=== PATIENT | female | born 1955 | race American Indian/Alaskan Native ===

== ENCOUNTER 2017-11-08 13:03 | Emergency (ER) | payer MEDICARE ==
[2017-11-08] MEDS ORDERED: TORADOL IV ONE (17:02)
[2017-11-08] MEDS ORDERED: BENADRYL IV ONE (17:02)
[2017-11-08] MEDS ORDERED: REGLAN IV ONE (17:02)
--- NOTE | 2017-11-08 17:06 | Emergency Department Report ---
Blank Doc - Documentation Documentation: 62-year-old female with past medical history hypertension presents to the hospital complaining of right-sided headache for the last 3 weeks. Headache is constant, worse with palpating the right side of her scalp, some light sensitivity reported. Patient denies head trauma, syncope, nausea, vomiting, fever, neck stiffness chest pain, or history of previous headaches. 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 IV ordered for IV Benadryl, Reglan, and Toradol for unilateral headache and possible migraine Neck supple without rigidity NIHSS performed chronic right side facial paralysis but otheriwse nonfocal neural exam without new deficit CT head ordered. Patient expresses claustrophobia hopefully above medications above will cause enough sedation and relaxation in order to tolerate CT scan without additional meds Midlevel to evaluate
[2017-11-08 18:53] VITALS: BP 154/89
--- NOTE | 2017-11-08 19:34 | Cat Scan Report ---
FINAL REPORT PROCEDURE: CT HEAD/BRAIN WO CON TECHNIQUE: Computerized tomography of the head was performed without contrast material. HISTORY: right sided leach x 3 weeks COMPARISON: No prior studies are available for comparison. FINDINGS: There is no evidence of intracranial hemorrhage. No parenchymal hemorrhage, mass lesions or mass effect are identified. There is decreased density seen in the right temporal lobe superiorly adjacent to the sylvian fissure. This extends into the inferior lateral aspect of the right parietal lobe. Old encephalomalacia appears to be present. There is no mass effect. There is mild decreased density in the periventricular white matter without mass effect suggesting gliosis related to microvascular disease or white matter changes of aging. Small old lacunar infarct visualized anterior lateral aspect left basal ganglia. The ventricles are normal size and are midline. No abnormal extra-axial fluid collections or masses are identified. Visualized portions of the paranasal sinuses appear clear. The mastoid air cells appear clear. Bone windows show no evidence of skull fracture. IMPRESSION: Small to moderate-size area of mature encephalomalacia visualize right temporal lobe extending superiorly posteriorly adjacent to the sylvian fissure toward the inferior lateral aspect of the right parietal lobe. Old lacunar infarct visualized left basal ganglia. There is evidence of mild gliosis. No acute intracranial abnormalities are identified.
--- NOTE | 2017-11-08 20:03 | Emergency Department Report ---
ED Headache HPI - General Chief Complaint: Headache Stated Complaint: PAIN Time Seen by Provider: 11/08/17 16:51 Source: patient Exam Limitations: no limitations - History of Present Illness Initial Comments: This is a 62-year-old -[place] female who presents with a headache for 3 weeks. Patient reports pain is on the right frontal. She is seeing another neurologist. Barry and getting Botox injections for facial paralysis and Lopez' s palsy. Patient reports pain is 10 out of 10 on pain scale and constant. Pain is aggravated by light, palpation, and when turning head to the right. Patient denies taking any medication at home for symptom relief. Patient denies head trauma, nausea or vomiting, syncope, fever, neck stiffness chest pain, or history of previous headaches. Timing/Duration: constant, other (3 weeks) Quality: constant, stabbing, throbbing Head Injury Location: frontal (right frontal) Recent Head Trauma: no recent headache/trauma Modifying Factors: improves with: exposure to light, movement Associated Symptoms: denies symptoms Allergies/Adverse Reactions: Allergies No Known Allergies Allergy (Unverified 11/08/17 13:21) Home Medications: Ambulatory Orders traMADol [Ultram 50 MG tab] 50 mg PO Q6HR PRN #12 tablet 11/08/17 ED Review of Systems ROS: Stated complaint: PAIN Other details as noted in HPI Constitutional: denies: chills, fever Respiratory: denies: cough, shortness of breath, wheezing Cardiovascular: denies: chest pain, palpitations Gastrointestinal: denies: abdominal pain, nausea, vomiting, diarrhea Neurological: headache. denies: weakness, numbness, paresthesias Psychiatric: denies: anxiety, depression ED Past Medical Hx - Past Medical History Hx Hypertension: Yes - Medications Home Medications: Home Medications Medication Instructions Recorded Confirmed Last Taken Type traMADol [Ultram 50 MG tab] 50 mg PO Q6HR PRN #12 tablet 11/08/17 Unknown Rx ED Physical Exam - General Limitations: No Limitations General appearance: alert, in no apparent distress - ENT ENT exam: Present: normal exam, mucous membranes moist - Neck Neck exam: Present: normal inspection, full ROM. Absent: tenderness, meningismus, lymphadenopathy, thyromegaly - Respiratory Respiratory exam: Present: normal lung sounds bilaterally. Absent: respiratory distress - Cardiovascular Cardiovascular Exam: Present: regular rate, normal rhythm. Absent: systolic murmur, diastolic murmur, rubs, gallop - GI/Abdominal GI/Abdominal exam: Present: soft, normal bowel sounds. Absent: organomegaly, mass - Neurological Exam Neurological exam: Present: alert, oriented X3, normal gait - Psychiatric Psychiatric exam: Present: normal affect, normal mood - Skin Skin exam: Present: warm, dry, intact, normal color. Absent: rash ED Course Vital Signs 11/08/17 11/08/17 13:21 18:52 Temperature 98.2 F 97.9 F Pulse Rate 75 69 Respiratory 18 18 Rate Blood Pressure 159/74 Blood Pressure 154/89 [Left] O2 Sat by Pulse 99 100 Oximetry ED Medical Decision Making - Radiology Data Radiology results: report reviewed PROCEDURE: CT HEAD/BRAIN WO CON TECHNIQUE: Computerized tomography of the head was performed without contrast material. HISTORY: right sided leach x 3 weeks COMPARISON: No prior studies are available for comparison. FINDINGS: There is no evidence of intracranial hemorrhage. No parenchymal hemorrhage, mass lesions or mass effect are identified. There is decreased density seen in the right temporal lobe superiorly adjacent to the sylvian fissure. This extends into the inferior lateral aspect of the right parietal lobe. Old encephalomalacia appears to be present. There is no mass effect. There is mild decreased density in the periventricular white matter without mass effect suggesting gliosis related to microvascular disease or white matter changes of aging. Small old lacunar infarct visualized anterior lateral aspect left basal ganglia. The ventricles are normal size and are midline. No abnormal extra-axial fluid collections or masses are identified. Visualized portions of the paranasal sinuses appear clear. The mastoid air cells appear clear. Bone windows show no evidence of skull fracture. IMPRESSION: Small to moderate-size area of mature encephalomalacia visualize right temporal lobe extending superiorly posteriorly adjacent to the sylvian fissure toward the inferior lateral aspect of the right parietal lobe. Old lacunar infarct visualized left basal ganglia. There is evidence of mild gliosis. No acute intracranial abnormalities are identified. - Medical Decision Making This is a 62 y.o. female that presents with headache for 3 weeks. History of hypertension, Lopez's palsy. Patient is stable and was examined by me and screening by Dr. Oliver. CT of head obtained and dictated by radiologist. Small to moderate-size area of mature encephalomalacia visualize right temporal lobe extending superiorly posteriorly adjacent to the sylvian fissure toward the inferior lateral aspect of the right parietal lobe. Old lacunar infarct visualized left basal ganglia. There is evidence of mild gliosis. No acute intracranial abnormalities are identified. Signs of distress noted. Given toradol, Reglan, and Benadryl once in ER. Patient reports feeling better after medication. Follow up with PCP and neurologist. Patient is directed to follow- up with neurology for further management of care, patient was given copy of disc and reports of CT scan. Start Tramadol for migraines. No further questions noted by the patient. Discharged home in stable condition. Follow up with PCP in 24-72 hours. Critical care attestation.: If time is entered above; I have spent that time in minutes in the direct care of this critically ill patient, excluding procedure time. ED Disposition Clinical Impression: Migraine Qualifiers: Migraine type: without aura Status migrainosus presence: with status migrainosus Intractability: not intractable Qualified Code(s): G43.001 - Migraine without aura, not intractable, with status migrainosus Disposition: TO HOME OR SELFCARE Is pt being admited?: No Does the pt Need Aspirin: No Condition: Stable Instructions: Acute Headache (ED), Migraine Headache (ED) Additional Instructions: Take medication at start of headache. Moderate caffeine intake. Eat at scheduled times or 3 meals a day with snacks. Follow up with primary care provider in 24-72 hours. Follow-up with neurologist in 3-[address] of head and for further management of care. Prescriptions: traMADol [Ultram 50 MG tab] 50 mg PO Q6HR PRN #12 tablet PRN Reason: Pain Referrals: [facility] [Provider Group] - 3-5 Days [facility] [Provider Group] - 3-5 Days [facility] [Provider Group] - 3-5 Days Time of Disposition: 21:26 Print Language: SRI LANKAN
== END 2017-11-08 21:50 | disposition home or self-care (01) ==
LOC: ED 13:03
DX: G43.001 Migraine without aura, not intractable, with status migrainosus (principal); I10 Essential (primary) hypertension; G51.0 Bell's palsy
CPT/HCPCS: 70450; 96374; 96375; 99284; J1200; J1885; J2765

== ENCOUNTER 2020-04-03 09:39 | Emergency (ER) | payer MEDICARE ==
[2020-04-03] MEDS ORDERED: COLCHICINE 0.6 MG CAP PO ONE (10:57)
[2020-04-03] MEDS ORDERED: KETOROLAC 60 MG/2 ML INJ IM ONE (10:57)
[2020-04-03] MEDS ORDERED: traMADol 50 MG TAB PO ONE (10:57)
[2020-04-03] MEDS ORDERED: dexAMETHasone 4 MG/ML VIAL IM ONE (10:57)
--- NOTE | 2020-04-03 10:59 | Emergency Department Report ---
ED Extremity Problem HPI - General Chief complaint: Extremity Injury, Lower Stated complaint: LT FOOT PAIN Time Seen by Provider: 04/03/20 10:53 Source: patient Mode of arrival: Ambulatory Limitations: No Limitations - History of Present Illness Initial comments: Patient is a 65-year-old female presents emergency room with complaints of right ankle and right foot pain and swelling that began 3 to 4 days ago. She denies any fall or injury. She states that she did have gout multiple years ago and states that it did flare in the same foot. She states it does feel similar to when she had gout several years ago. She denies any calf pain, swelling of the leg, chest pain, shortness of breath, fever, vomiting, diarrhea, chills. She has a past medical history of hypertension. No allergies to medications. - Related Data Previous Rx's Medication Instructions Recorded Last Taken Type Cyclobenzaprine [Flexeril] 10 mg PO TID PRN #20 tablet 11/05/19 Unknown Rx Ibuprofen [Motrin] 800 mg PO Q8HR PRN #20 tablet 11/05/19 Unknown Rx traMADoL [Ultram 50 MG tab] 50 mg PO Q6HR PRN #20 tablet 11/05/19 Unknown Rx Acetaminophen [Tylenol] 650 mg PO Q8HR PRN #20 capsule 04/03/20 Unknown Rx Colchicine 0.6 mg PO ONCE 1 Days #1 capsule 04/03/20 Unknown Rx Prednisone [predniSONE 10 mg 10 mg PO .TAPER #1 tab.ds.pk 04/03/20 Unknown Rx (6-Day Pack, 21 Tabs)] traMADoL [Ultram 50 MG tab] 50 mg PO Q6HR PRN #10 tablet 04/03/20 Unknown Rx Allergies Allergy/AdvReac Type Severity Reaction Status Date / Time No Known Allergies Allergy Verified 04/03/20 09:43 ED Review of Systems ROS: Stated complaint: LT FOOT PAIN Other details as noted in HPI Comment: All other systems reviewed and negative ED Past Medical Hx - Past Medical History Hx Hypertension: Yes Additional medical history: Hepatitis C - Social History Smoking Status: Never Smoker Substance Use Type: None - Medications Home Medications: Home Medications Medication Instructions Recorded Confirmed Last Taken Type Cyclobenzaprine [Flexeril] 10 mg PO TID PRN #20 tablet 11/05/19 Unknown Rx Ibuprofen [Motrin] 800 mg PO Q8HR PRN #20 tablet 11/05/19 Unknown Rx traMADoL [Ultram 50 MG tab] 50 mg PO Q6HR PRN #20 tablet 11/05/19 Unknown Rx Acetaminophen [Tylenol] 650 mg PO Q8HR PRN #20 capsule 04/03/20 Unknown Rx Colchicine 0.6 mg PO ONCE 1 Days #1 capsule 04/03/20 Unknown Rx Prednisone [predniSONE 10 mg 10 mg PO .TAPER #1 tab.ds.pk 04/03/20 Unknown Rx (6-Day Pack, 21 Tabs)] traMADoL [Ultram 50 MG tab] 50 mg PO Q6HR PRN #10 tablet 04/03/20 Unknown Rx ED Physical Exam - General Limitations: No Limitations General appearance: alert, in no apparent distress - Head Head exam: Present: atraumatic, normocephalic - Eye Eye exam: Present: normal appearance - ENT ENT exam: Present: mucous membranes moist - Respiratory Respiratory exam: Absent: respiratory distress, accessory muscle use - Extremities Exam Extremities exam: Present: other (edema and generalized ttp of the right ankle and foot, mild increased warmth, no erythema, FROM of the LLE, no deformity, no skin changes, neurovascularly intact, no calf ttp, no edema present in the rest of the RLE) - Neurological Exam Neurological exam: Present: alert, oriented X3 - Psychiatric Psychiatric exam: Present: normal affect, normal mood - Skin Skin exam: Present: warm, dry, intact ED Course Vital Signs 04/03/20 04/03/20 04/03/20 09:47 12:20 12:50 Temperature 97.8 F Pulse Rate 97 H Respiratory 18 18 18 Rate Blood Pressure 149/86 Blood Pressure [Left] O2 Sat by Pulse 100 Oximetry 04/03/20 04/03/20 13:17 13:19 Temperature Pulse Rate 82 Respiratory 18 18 Rate Blood Pressure Blood Pressure 141/80 [Left] O2 Sat by Pulse 99 Oximetry ED Medical Decision Making - Lab Data Result diagrams: 04/03/20 11:58 04/03/20 11:58 Lab Results 04/03/20 04/03/20 Range/Units 11:58 11:58 WBC 9.5 (4.5-11.0) K/mm3 RBC 3.66 (3.65-5.03) M/mm3 Hgb 10.5 (10.1-14.3) gm/dl Hct 32.5 (30.3-42.9) % MCV 89 (79-97) fl MCH 29 (28-32) pg MCHC 32 (30-34) % RDW 13.8 (13.2-15.2) % Plt Count 352 (140-440) K/mm3 Lymph % (Auto) 28.9 (13.4-35.0) % [place] % (Auto) 6.3 (0.0-7.3) % Eos % (Auto) 1.2 (0.0-4.3) % Baso % (Auto) 0.8 (0.0-1.8) % Lymph # (Auto) 2.7 (1.2-5.4) K/mm3 [place] # (Auto) 0.6 (0.0-0.8) K/mm3 Eos # (Auto) 0.1 (0.0-0.4) K/mm3 Baso # (Auto) 0.1 (0.0-0.1) K/mm3 Seg Neutrophils % 62.8 (40.0-70.0) % Seg Neutrophils # 6.0 (1.8-7.7) K/mm3 Sodium 142 (137-145) mmol/L Potassium 3.8 (3.6-5.0) mmol/L Chloride 102.3 (98-107) mmol/L Carbon Dioxide 33 H (22-30) mmol/L Anion Gap 11 mmol/L BUN 20 H (7-17) mg/dL Creatinine 1.1 (0.6-1.2) mg/dL Estimated GFR 60 ml/min BUN/Creatinine Ratio 18 % Glucose 125 H (65-100) mg/dL Uric Acid 9.7 H (3.5-7.6) mg/dL Calcium 9.7 (8.4-10.2) mg/dL Total Bilirubin 0.40 (0.1-1.2) mg/dL AST 13 (5-40) units/L ALT 6 L (7-56) units/L Alkaline Phosphatase 102 (35-129) units/L C-Reactive Protein 1.60 H (0.00-1.30) mg/dL Total Protein 8.2 (6.3-8.2) g/dL Albumin 3.8 L (3.9-5) g/dL Albumin/Globulin Ratio 0.9 % - Radiology Data Radiology results: report reviewed Ordering Physician: SUSHILA JADE Date of Service: 04/03/20 Procedure(s): XR foot 3+V RT Accession Number(s): [id number] cc: SUSHILA JADE Fluoro Time In Minutes: RIGHT FOOT 3 VIEW(S) INDICATION / CLINICAL INFORMATION: Right foot pain and swelling COMPARISON: None available. FINDINGS: BONES / JOINT(S): No acute fracture or subluxation. Moderate degenerative arthrosis first MTP joint. SOFT TISSUES: No significant abnormality. ADDITIONAL FINDINGS: Osteopenia Signer Name: Jt Hancock MD Signed: 04/03/2020 11:34 AM Workstation Name: [id number] Transcribed By: TL Dictated By: Jt Hancock MD Electronically Authenticated By: Jt Hancock MD Signed Date/Time: 04/03/201133 DD/ 1133 TD/TT: Ordering Physician: SUSHILA JADE Date of Service: 04/03/20 Procedure(s): XR ankle 3+V RT Accession Number(s): [id number] cc: SUSHILA JADE Fluoro Time In Minutes: RIGHT ANKLE 3 VIEW(S) INDICATION / CLINICAL INFORMATION: right ankle swelling/pain COMPARISON: None available. FINDINGS: BONES / JOINT(S): No acute fracture or subluxation. No significant arthritis. SOFT TISSUES: Moderate diffuse soft tissue swelling. ADDITIONAL FINDINGS: None. Signer Name: Jt Hancock MD Signed: 04/03/2020 11:35 AM Workstation Name: [id number] Transcribed By: TL Dictated By: Jt Hancock MD Electronically Authenticated By: Jt Hancock MD Signed Date/Time: 04/03/201134 DD/ 113 TD/TT: - Medical Decision Making Patient is a 65-year-old female presents emergency room with complaints of right ankle and right foot pain and swelling that began 3 to 4 days ago. She denies any fall or injury. She states that she did have gout multiple years ago and states that it did flare in the same foot. She states it does feel similar to when she had gout several years ago. She denies any calf pain, swelling of the leg, chest pain, shortness of breath, fever, vomiting, diarrhea, chills. She has a past medical history of hypertension. No allergies to medications. VSS. on exam: edema and generalized ttp of the right ankle and foot, mild increased warmth, no erythema, FROM of the LLE, no deformity, no skin changes, neurovascularly intact, no calf ttp, no edema present in the rest of the RLE. XR right foot: BONES / JOINT(S): No acute fracture or subluxation. Moderate degenerative arthrosis first MTP joint. SOFT TISSUES: No significant abnormality. ADDITIONAL FINDINGS: Osteopenia. XR right ankle: BONES / JOINT(S): No acute fracture or subluxation. No significant arthritis. SOFT TISSUES: Moderate diffuse soft tissue swelling. ADDITIONAL FINDINGS: None. Labs with elevated uric acid and mildly elevated CRP. White count is normal, patient is afebrile. Examination appears most consistent with acute gout flare. do not suspect septic joint at this time. Patient given medications while in the emergency department and symptoms improved. Patient given prescription for colc hicine, prednisone, tramadol, Tylenol. Advised patient Please take medication as prescribed. Do not drive or operate machinery while taking severe pain medication. Follow-up with a primary care doctor. Return to emergency room for any new or worsening symptoms. - Differential Diagnosis Arthritis, gout, septic joint, RA, PVD, strain, sprain, fx, dislocation Critical care attestation.: If time is entered above; I have spent that time in minutes in the direct care of this critically ill patient, excluding procedure time. ED Disposition Clinical Impression: Acute gout Qualifiers: Gout site: ankle Gout etiology: unspecified cause Laterality: right Qualified Code(s): M10.9 - Gout, unspecified Disposition: DC-01 TO HOME OR SELFCARE Is pt being admited?: No Does the pt Need Aspirin: No Condition: Stable Instructions: Low-Purine Eating Plan Additional Instructions: Please take medication as prescribed. Do not drive or operate machinery while taking severe pain medication. Follow-up with a primary care doctor. Return to emergency room for any new or worsening symptoms. Prescriptions: Colchicine 0.6 mg PO ONCE 1 Days #1 capsule Prednisone [predniSONE 10 mg (6-Day Pack, 21 Tabs)] 10 mg PO .TAPER #1 tab.ds.pk Acetaminophen [Tylenol] 650 mg PO Q8HR PRN #20 capsule PRN Reason: Pain, Moderate (4-6) traMADoL [Ultram 50 MG tab] 50 mg PO Q6HR PRN #10 tablet PRN Reason: Pain , Severe (7-10) Referrals: PRIMARY CAREMD [Primary Care Provider] - 2-3 Days BORIS ESCOBEDO MD [Staff Physician] - 2-3 Days [facility] [Provider Group] - 2-3 Days VITO TREVIÑO MD [Staff Physician] - 2-3 Days SARA BLANKENHSIP MD [Staff Physician] - 2-3 Days Time of Disposition: 12:47 Print Language: CANADIAN
--- NOTE | 2020-04-03 11:38 | XRay Report ---
RIGHT FOOT 3 VIEW(S) INDICATION / CLINICAL INFORMATION: Right foot pain and swelling COMPARISON: None available. FINDINGS: BONES / JOINT(S): No acute fracture or subluxation. Moderate degenerative arthrosis first MTP joint. SOFT TISSUES: No significant abnormality. ADDITIONAL FINDINGS: Osteopenia Signer Name: Jt Hancock MD Signed: 04/03/2020 11:34 AM Workstation Name: [id number]
--- NOTE | 2020-04-03 11:39 | XRay Report ---
RIGHT ANKLE 3 VIEW(S) INDICATION / CLINICAL INFORMATION: right ankle swelling/pain COMPARISON: None available. FINDINGS: BONES / JOINT(S): No acute fracture or subluxation. No significant arthritis. SOFT TISSUES: Moderate diffuse soft tissue swelling. ADDITIONAL FINDINGS: None. Signer Name: Jt Hancock MD Signed: 04/03/2020 11:35 AM Workstation Name: [id number]
[2020-04-03] MEDS ORDERED: methylPREDNISolone Sod Succinate 125 MG/2 ML INJ IM ONE (11:52)
[2020-04-03 12:25] LABS: Basophils # (Auto) 0.1 K/mm3 (0.0-0.1); Basophils % (Auto) 0.8 % (0.0-1.8); Eosinophils # (Auto) 0.1 K/mm3 (0.0-0.4); Eosinophils % (Auto) 1.2 % (0.0-4.3); Hematocrit 32.5 % (30.3-42.9); Hemoglobin 10.5 gm/dl (10.1-14.3); Lymphocytes # (Auto) 2.7 K/mm3 (1.2-5.4); Lymphocytes % (Auto) 28.9 % (13.4-35.0); Mean Corpuscular HGB Conc 32 % (30-34); Mean Corpuscular Volume 89 fl (79-97); Monocytes # (Auto) 0.6 K/mm3 (0.0-0.8); Monocytes % (Auto) 6.3 % (0.0-7.3); Platelet Count 352 K/mm3 (140-440); Red Blood Count 3.66 M/mm3 (3.65-5.03); Red Cell Distribution Width 13.8 % (13.2-15.2)
[2020-04-03 12:42] LABS: Albumin 3.8 g/dL (3.9-5); C-Reactive Protein 1.6 mg/dL (0.00-1.30); Calcium 9.7 mg/dL (8.4-10.2); Uric Acid 9.7 mg/dL (3.5-7.6)
[2020-04-03 13:21] VITALS: BP 141/80
== END 2020-04-03 13:16 | disposition home or self-care (01) ==
LOC: ED 09:39
DX: M10.9 Gout, unspecified (principal); I10 Essential (primary) hypertension; Z79.1 Long term (current) use of non-steroidal anti-inflammatories (NSAID); Z79.899 Other long term (current) drug therapy
CPT/HCPCS: 36415; 73610; 73630; 80053; 84550; 85025; 86140; 96372; 99283; J1885; J2930